=== PATIENT | male | born 1975 | race African-American/Black ===

== ENCOUNTER 2017-10-25 19:26 | Emergency (ER) | payer OTHER, MEDICARE ==
[2017-10-25 19:54] LABS: BILIRUBIN,URINE NEGATIVE (NEG); CLARITY,URINE CLEAR; COLOR,URINE YELLOW; GLUCOSE,URINE NEGATIVE (NEG); NITRITE,URINE NEGATIVE (NEG); PROTEIN,URINE NEGATIVE (NEG-TRACE)
[2017-10-25 20:16] LABS: BACTERIA,URINE 0 /HPF (0-FEW); RBC,URINE 0 /HPF (0-2); WBC,URINE TNTC /HPF (0-4)
[2017-10-25 20:31] LABS: ANION GAP 5 (6-14); BLOOD UREA NITROGEN 21 mg/dL (8-26); CALCIUM 9.3 mg/dL (8.5-10.1); CARBON DIOXIDE 30 mmol/L (21-32); CHLORIDE 105 mmol/L (98-107); CREATININE 1.1 mg/dL (0.7-1.3); GFR 88.4; GLUCOSE 93 mg/dL (70-99); POTASSIUM 4.2 mmol/L (3.5-5.1); SODIUM 140 mmol/L (136-145)
[2017-10-25 20:36] LABS: CREATINE KINASE 505 U/L (39-308)
[2017-10-25] MEDS: cefTRIAXone IM 250 MG VIAL IM ×2 (21:24)
[2017-10-25] MEDS: DOXYCYCLINE HYCLATE 100 MG TABLET PO ×2 (21:24)
== END 2017-10-25 21:28 | disposition home or self-care (01) ==
LOC: ER 19:26
DX: A64 Unspecified sexually transmitted disease (principal); E86.0 Dehydration; I10 Essential (primary) hypertension
CPT/HCPCS: 36415; 80048; 81001; 82550; 87086; 87491; 87591; 96372; 99284-25; J0696